=== PATIENT | female | born 1945 | race African-American/Black ===

== ENCOUNTER 2025-03-06 07:09 | Emergency (ER) | payer OTHER ==
[~2025-03-06] VITALS: Ht 147.3 cm; Wt 73.0 kg
[2025-03-06 07:26] VITALS: O2SAT 100
[2025-03-06 08:04] LABS: BASOPHILS % 0.3 % (0.0-2.0); EOSINOPHILS % 1.2 % (0.0-5.0); HEMATOCRIT. 39.3 % (36.0-48.0); HEMOGLOBIN. 13.0 g/dL (12.0-16.0); LYMPHOCYTES % 36.4 % (20.0-50.0); MEAN PLATELET VOLUME 8.7 fl (7.4-10.4); MONOCYTES % 7.8 % (2.0-8.0); NEUTROPHILS % 54.3 % (40.0-76.0); PLATELET 333 x1000/uL (130-400); RED BLOOD CELL COUNT 4.18 mill/uL (4.2-5.4); RED CELL DISTRIBUTION WIDTH 14.5 % (11.6-14.6)
[2025-03-06] MEDS: MECLIZINE 25MG TABLET PO ONE (08:08)
[2025-03-06 08:30] LABS: CREATININE 1.0 mg/dL (0.6-1.0); PROTEIN TOTAL 7.4 g/dL (6.0-8.3); TROPONIN I HIGH SENSITIVITY 4 ng/L (3.0-34); UREA NITROGEN BLOOD 8 mg/dL (9-23)
[2025-03-06 08:32] LABS: ASPARTATE AMINOTRANSFERASE 22 IU/L (<34); BILIRUBIN DIRECT 0.2 mg/dL (<=3.0); BILIRUBIN TOTAL 0.9 mg/dL (0.1-1.0)
[2025-03-06] MEDS: POTASSIUM CHLORIDE 20MEQ/PACKET PO ONE (09:15)
[2025-03-06 10:40] VITALS: BP 137/65; PULSE 79; RESP 18; TEMP 36.8; O2SAT 100
== END 2025-03-06 10:43 | disposition short-term general hospital (02) ==
LOC: ER 07:09
DX: E87.6 Hypokalemia (principal); R42 Dizziness and giddiness; E78.00 Pure hypercholesterolemia, unspecified; I10 Essential (primary) hypertension; Z90.710 Acquired absence of both cervix and uterus
CPT/HCPCS: 99291; 70450; 80076; 80048; 85025; 84484; 36415; 93005; J8597